=== PATIENT | female | born 1995 | race Caucasian/White ===

== ENCOUNTER 2021-04-27 21:06 | Emergency (ER) | payer MEDICAID ==
[~2021-04-27] VITALS: Ht 149.9 cm; Wt 62.6 kg
[2021-04-27 21:11] VITALS: BP 129/66
[2021-04-27] MEDS ORDERED: PANTOPRAZOLE 40 MG INJ VIAL IVP ONE (21:35)
[2021-04-27] MEDS ORDERED: MORPHINE SULFATE 2 MG/ML SYR IVP ONE (21:35)
[2021-04-27] MEDS ORDERED: ONDANSETRON 4 MG/2 ML VIAL IVP ONE (21:35)
[2021-04-27] MEDS ORDERED: NACL 0.9% 1,000 ML IV ONE (21:35)
[2021-04-27 21:57] LABS: BASOPHILS % (AUTO) 0.4 % (0.0-2.0); EOSINOPHILS # (AUTO) 0.1 K/uL (0-0.4); EOSINOPHILS % (AUTO) 1.2 % (0.0-4.0); HEMATOCRIT 32.1 % (36-48); HEMOGLOBIN 10.5 g/dL (12.0-16.0); LYMPHOCYTES % (AUTO) 23.2 % (20.5-51.1); MEAN CORPUSCULAR HEMOGLOBIN 24 pg (27-31); MEAN CORPUSCULAR HGB CONC 33 g/dL (33-37); MEAN CORPUSCULAR VOLUME 73.9 fL (80-94); MONOCYTES # (AUTO) 0.9 K/uL (0.8-1.0); MONOCYTES % (AUTO) 10.5 % (1.7-9.3); NEUTROPHILS # (AUTO) 5.6 K/uL (1.8-7.7); NEUTROPHILS % (AUTO) 64.7 % (42.2-75.2); PLATELET COUNT (AUTO) 331 K/uL (140-450); RED BLOOD CELL COUNT(AUTO) 4.35 MIL/uL (4.20-5.40); WHITE BLOOD COUNT (AUTO) 8.7 K/uL (4.8-10.8)
[2021-04-27 22:12] LABS: ANION GAP 15.2 (8-16); CARBON DIOXIDE 24.2 mmol/L (21-32); CREATININE 0.8 mg/dL (0.6-1.3); POTASSIUM 3.4 mmol/L (3.5-5.1); TOTAL BILIRUBIN 0.2 mg/dL (0.0-1.0)
[2021-04-27] MEDS ORDERED: ONDA-24 SL (23:50)
[2021-04-28 00:12] VITALS: BP 116/72
== END 2021-04-28 00:12 | disposition home or self-care (01) ==
LOC: MED 21:06
DX: R19.7 Diarrhea, unspecified (principal); R10.30 Lower abdominal pain, unspecified
CPT/HCPCS: 36415; 74018; 80053; 81002; 81025; 85025; 96361; 96374; 96375; 99284; C9113; J2270; J2405; J7030

== ENCOUNTER 2021-05-21 14:32 | Emergency (ER) | payer MEDICAID ==
[~2021-05-21] VITALS: Ht 149.9 cm; Wt 68.0 kg
[~2021-05-21 14:32] MED LIST: ONDA-24 SL
[2021-05-21 14:35] VITALS: BP 118/70
[2021-05-21] MEDS ORDERED: IBUPROFEN 600 MG TAB PO ONE (15:00)
[2021-05-21] MEDS ORDERED: LIDOCAINE MPF 1% 10 MG/ML VIAL INJ ONE (15:05)
[2021-05-21] MEDS ORDERED: BACITRACIN OINT 500 UNITS/GM PKT TP ONE ×2 (15:58→16:10)
[2021-05-21] MEDS ORDERED: IBUP-2213 PO (16:17)
[2021-05-21] MEDS ORDERED: BACI1PAC6 TP (16:17)
[2021-05-21 16:46] VITALS: BP 123/70
== END 2021-05-21 16:46 | disposition home or self-care (01) ==
LOC: MED 14:32
DX: S61.012A Laceration without foreign body of left thumb without damage to nail, initial encounter (principal); X58.XXXA Exposure to other specified factors, initial encounter; Y93.89 Activity, other specified; Y92.89 Other specified places as the place of occurrence of the external cause; Y99.8 Other external cause status
CPT/HCPCS: 12001; 90471; 90715; 99283; J2001

== ENCOUNTER 2021-05-23 18:09 | Emergency (ER) | payer MEDICAID ==
[~2021-05-23] VITALS: Ht 149.9 cm; Wt 68.0 kg
[~2021-05-23 18:09] MED LIST changes: +BACI1PAC6 TP; +IBUP-2213 PO
[2021-05-23 18:14] VITALS: BP 101/71
--- NOTE | 2021-05-23 18:14 | NUR ---
C/O LEFT THUMB WOUND CHECK. DENIES PAIN. DENIES FEVER, CHILLS. WAS HERE A COUPLE OF DAYS AGO FROM A LACERATION AND WAS STITCHED UP BY THE ERMD PM DENIES NKA
--- NOTE | 2021-05-23 18:19 | NUR ---
PATIENT TO CHAIR
--- NOTE | 2021-05-23 18:20 | NUR ---
PA examined patient
[2021-05-23 18:29] VITALS: BP 101/71
--- NOTE | 2021-05-23 18:29 | NUR ---
Patient discharged with v/s stable. Written and verbal after care instructions given and explained. Patient verbalized understanding. Ambulatory with steady gait. ID band removed. All questions addressed prior to discharge. Advised to follow up with PMD.
== END 2021-05-23 18:29 | disposition home or self-care (01) ==
LOC: MED 18:09
DX: S61.012D Laceration without foreign body of left thumb without damage to nail, subsequent encounter (principal); Z79.899 Other long term (current) drug therapy; X58.XXXD Exposure to other specified factors, subsequent encounter
CPT/HCPCS: 99281; 99282

== ENCOUNTER 2021-05-27 11:11 | Emergency (ER) | payer MEDICAID ==
[~2021-05-27] VITALS: Ht 149.9 cm; Wt 68.0 kg
[2021-05-27 11:19] VITALS: BP 121/78
[2021-05-27 12:31] VITALS: BP 121/78
== END 2021-05-27 12:31 | disposition home or self-care (01) ==
LOC: MED 11:11
DX: S61.012D Laceration without foreign body of left thumb without damage to nail, subsequent encounter (principal); Z48.00 Encounter for change or removal of nonsurgical wound dressing; Z79.899 Other long term (current) drug therapy; X58.XXXA Exposure to other specified factors, initial encounter
CPT/HCPCS: 12001; 99282

== ENCOUNTER 2021-11-26 22:31 | Emergency (ER) | payer MEDICAID ==
[~2021-11-26] VITALS: Ht 149.9 cm; Wt 67.6 kg
[~2021-11-26 22:31] MED LIST changes: +ONDA-188 SL; -ONDA-24 SL
[2021-11-26 22:35] VITALS: BP 133/68
--- NOTE | 2021-11-26 22:38 | NUR ---
TO LOBBY A/W BED AMBULATORY
--- NOTE | 2021-11-26 23:40 | NUR ---
SEEN AND EXAMINED BY MAYA
--- NOTE | 2021-11-26 23:45 | NUR ---
VOMITING, FOR 2 WKS, RASHES ON HER FACE , LEGS, HEADACHES , NO VAG BLEEDING, 10 WEEKS, LMP 10.25
[2021-11-26] MEDS ORDERED: ONDANSETRON 4 MG/2 ML VIAL IVP ONE (23:55)
[2021-11-26] MEDS ORDERED: diphenhydrAMINE 50 MG/ML VIAL IVP ONE (23:55)
[2021-11-26] MEDS ORDERED: NACL 0.9% 1,000 ML IV SCH (23:55)
[2021-11-27 00:12] LABS: BASOPHILS % (AUTO) 0.5 % (0.0-2.0); EOSINOPHILS # (AUTO) 0.1 K/uL (0-0.4); EOSINOPHILS % (AUTO) 0.7 % (0.0-4.0); HEMATOCRIT 33.4 % (36-48); HEMOGLOBIN 11.3 g/dL (12.0-16.0); LYMPHOCYTES % (AUTO) 12.5 % (20.5-51.1); MEAN CORPUSCULAR HEMOGLOBIN 24 pg (27-31); MEAN CORPUSCULAR HGB CONC 34 g/dL (33-37); MEAN CORPUSCULAR VOLUME 70.4 fL (80-94); MONOCYTES # (AUTO) 0.9 K/uL (0.8-1.0); MONOCYTES % (AUTO) 11.1 % (1.7-9.3); NEUTROPHILS # (AUTO) 6.1 K/uL (1.8-7.7); NEUTROPHILS % (AUTO) 75.2 % (42.2-75.2); PLATELET COUNT (AUTO) 335 K/uL (140-450); RED BLOOD CELL COUNT(AUTO) 4.75 MIL/uL (4.20-5.40); RED CELL DISTRIBUTION WIDTH 15.7 % (11.6-13.7); WHITE BLOOD COUNT (AUTO) 8.1 K/uL (4.8-10.8)
[2021-11-27 00:41] LABS: ALBUMIN 2.8 g/dL (3.4-5.0); ANION GAP 9.3 (8-16); CREATININE 0.7 mg/dL (0.6-1.3); POTASSIUM 3.3 mmol/L (3.5-5.1); TOTAL BILIRUBIN 0.6 mg/dL (0.0-1.0)
[2021-11-27] MEDS ORDERED: ACETAMINOPHEN 325 MG TAB PO ONE (01:25)
[2021-11-27] MEDS ORDERED: PROCHLORPERAZINE 10 MG/2 ML VIAL IVP ONE (01:25)
[2021-11-27] MEDS ORDERED: BENC TP (01:57)
[2021-11-27] MEDS ORDERED: ONDA-188 SL (01:57)
[2021-11-27 03:00] VITALS: BP 120/69
--- NOTE | 2021-11-27 03:00 | NUR ---
Patient discharged with v/s stable. Written and verbal after care instructions given and explained. Patient alert, oriented and verbalized understanding of instructions. Ambulatory with steady gait. All questions addressed prior to discharge. ID band removed. Patient advised to follow up with PMD. Rx OF BENDRYL TOPICAL CREAM AND ZOFRAN given. Patient educated on indication of medication including possible reaction and side effects. Opportunity to ask questions provided and answered.
== END 2021-11-27 03:00 | disposition home or self-care (01) ==
LOC: MED 22:31
DX: O21.0 Mild hyperemesis gravidarum (principal); O99.281 Endocrine, nutritional and metabolic diseases complicating pregnancy, first trimester; E86.0 Dehydration; O99.711 Diseases of the skin and subcutaneous tissue complicating pregnancy, first trimester; L81.1 Chloasma; O99.351 Diseases of the nervous system complicating pregnancy, first trimester; R51.9 Headache, unspecified; Z3A.10 10 weeks gestation of pregnancy; Z79.899 Other long term (current) drug therapy; Z79.1 Long term (current) use of non-steroidal anti-inflammatories (NSAID); Z79.2 Long term (current) use of antibiotics
CPT/HCPCS: 36415; 80053; 81002; 81025; 83690; 85025; 96361; 96374; 96375; 99284; J0780; J1200; J2405